=== PATIENT | male | born 1990 | race Caucasian/White ===

== ENCOUNTER → 2016-09-26 | Outpatient (CLI) | payer BC ==
[~2016-09-26] MED LIST: AMPH10TA2 PO; AMPH15CA7 PO; AMPH20CA3 PO; AMPH20TA2 PO; DOXY100C PO; ONDA4TAB10 SL
== END | disposition home or self-care (01) ==
LOC: C.PATHSPEC 16:28
PROVIDERS: ATTEND Dermatology
DX: A63.0 Anogenital (venereal) warts (principal)

== ENCOUNTER 2017-04-28 16:18 | Emergency (ER) | payer BC ==
[~2017-04-28] VITALS: Ht 180.3 cm; Wt 71.9 kg
[~2017-04-28 16:18] MED LIST changes: -AMPH10TA2 PO; -AMPH20TA2 PO; -DOXY100C PO
[2017-04-28 16:25] VITALS: Ht 180.3 cm; Wt 71.9 kg
--- NOTE | 2017-04-28 16:47 | EMERGENCY ROOM VISIT NOTE ---
History Report prepared by Tushar: Sarah Rodriguez Under the Supervision of: Dr. Bobby Wellington M.D. First contact with patient: 16:28 Chief Complaint: ABDOMINAL PAIN Stated Complaint: PAIN ABOVE PREVIOUS HERNIA SITE,ABD MVMNTS HURT Nursing Triage Summary: patient hx hernia surgery 6 years ago patient c/o right/middle abdominal pain for a couple weeks. increases in pain when doing excercises. patient states,"I just want to make sure eveyrthings ok because I had hernia surgery there." History of Present Illness The patient is a 26 year old male who presents to the Emergency Room with complaints of persistent abdominal pain starting 1.5-2 weeks ago. The patient has a history of right inguinal hernia surgery 6 years ago. He is having increased abdominal pain and is concerned about the previous surgery. He states the pain is mild. 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 He does do lifting regularly at work. He does not notice the pain as much during his normal daily activities. He reports some nausea. He denies any urinary symptoms, fever, or testicular pain. He still has his appendix. Source of History: patient Onset: 1.5-2 weeks ago Position: abdomen Symptom Intensity: mild Quality: other (pain) Timing: other (persistent) Modifying Factors (Worsening): movement Associated Symptoms: + nausea, No fevers, No urinary symptoms Note: Pt denies testicular pain. Review of Systems See HPI for pertinent positives & negatives. A total of 10 systems reviewed and were otherwise negative. Past Medical & Surgical Medical Problems: (1) Unilat Inguinal Hernia Family History No pertinent family history stated. Social History Smoking Status: Never Smoker Alcohol Use: occasionally Occupation Status: employed Current/Historical Medications No Active Prescriptions or Reported Meds Allergies Uncoded Allergies: STERIODS (Adverse Reaction, Intermediate, "EXTREME HYPERACTIVITY", 02/25/17) Physical Exam Vital Signs Date Time Temp Pulse Resp B/P (MAP) Pulse Ox O2 Delivery O2 Flow Rate FiO2 04/28/17 18:12 70 17 130/81 100 Room Air 04/28/17 17:42 37.2 04/28/17 16:25 36.5 92 18 146/86 100 Room Air Physical Exam GENERAL: Patient is in no acute distress. HEENT: No acute trauma, normocephalic atraumatic, mucous membranes moist, no nasal congestion, no scleral icterus. NECK: No stridor, no adenopathy, no meningismus, trachea is midline. LUNGS: Clear to auscultation bilaterally, no wheeze, no rhonchi, breath sounds equal. HEART: Without murmurs gallops or rubs, regular rate and rhythm. ABDOMEN: Soft, tender over the right lower abdomen at the edge of the rectus abdominis muscle, pain does not resolve with flexion of the abdominal musculature, bowel sounds positive, no hernias, no peritonitis. EXTREMITIES: No cyanosis or edema, full range of motion of all the joints without pain or difficulty, no signs for acute trauma. NEUROLOGIC: Oriented x 3, no acute motor or sensory deficits, no focal weakness. SKIN: No rash, no jaundice, no diaphoresis. Medical Decision & Procedures ER Provider Diagnostic Interpretation: Radiology results as stated below per my review and radiologist interpretation: RIGHT LOWER QUADRANT ABDOMINAL ULTRASOUND HISTORY: Right lower quadrant pain above previous hernia site. Evaluate for hernia. COMPARISON: None. FINDINGS: No right lower quadrant hernia was identified. Trace free fluid within the right lower quadrant was noted. A tubular structure with gut signature within the right lower quadrant measures 4 mm in caliber and favors the appendix. This is within normal limits. IMPRESSION: 1. No sonographic evidence of a hernia within the right lower quadrant. 2. Trace free fluid within the right lower quadrant. 3. Probable visualization of a normal appendix. Electronically signed by: José Luis Espinoza M.D. 04/28/2017 6:56 PM Dictated Date/Time: 04/28/2017 6:54 PM Laboratory Results 04/28/17 16:46 Red Blood Count 4.94, Mean Corpuscular Volume 84.0, Mean Corpuscular Hemoglobin 30.6, Mean Corpuscular Hemoglobin Concent 36.4, Mean Platelet Volume 10.9, Neutrophils (%) (Auto) 57.2, Lymphocytes (%) (Auto) 33.8, Monocytes (%) (Auto) 6.5, Eosinophils (%) (Auto) 2.3, Basophils (%) (Auto) 0.1, Neutrophils # (Auto) 4.25, Lymphocytes # (Auto) 2.51, Monocytes # (Auto) 0.48, Eosinophils # (Auto) 0.17, Basophils # (Auto) 0.01 04/28/17 16:46 Test 04/28/17 16:40 04/28/17 16:46 Urine Color YELLOW Urine Appearance CLEAR (CLEAR) Urine pH 7.0 (4.5-7.5) Urine Specific [place] 1.009 (1.000-1.030) Urine Protein NEG (NEG) Urine Glucose (UA) NEG (NEG) Urine Ketones NEG (NEG) Urine Occult Blood NEG (NEG) Urine Nitrite NEG (NEG) Urine Bilirubin NEG (NEG) Urine Urobilinogen NEG (NEG) Urine Leukocyte Esterase NEG (NEG) White Blood Count 7.43 K/uL (4.8-10.8) Red Blood Count 4.94 M/uL (4.7-6.1) Hemoglobin 15.1 g/dL (14.0-18.0) Hematocrit 41.5 % (42-52) Mean Corpuscular Volume 84.0 fL (80-100) Mean Corpuscular Hemoglobin 30.6 pg (25-34) Mean Corpuscular Hemoglobin Concent 36.4 g/dl (32-36) Platelet Count 189 K/uL (130-400) Mean Platelet Volume 10.9 fL (7.4-10.4) Neutrophils (%) (Auto) 57.2 % Lymphocytes (%) (Auto) 33.8 % Monocytes (%) (Auto) 6.5 % Eosinophils (%) (Auto) 2.3 % Basophils (%) (Auto) 0.1 % Neutrophils # (Auto) 4.25 K/uL (1.4-6.5) Lymphocytes # (Auto) 2.51 K/uL (1.2-3.4) Monocytes # (Auto) 0.48 K/uL (0.11-0.59) Eosinophils # (Auto) 0.17 K/uL (0-0.5) Basophils # (Auto) 0.01 K/uL (0-0.2) RDW Standard Deviation 37.8 fL (36.4-46.3) RDW Coefficient of Variation 12.6 % (11.5-14.5) Immature Granulocyte % (Auto) 0.1 % Immature Granulocyte # (Auto) 0.01 K/uL (0.00-0.02) Anion Gap 7.0 mmol/L (3-11) Est Creatinine Clear Calc Drug Dose 119.6 ml/min Estimated GFR () 126.8 Estimated GFR (Non- 109.4 BUN/Creatinine Ratio 15.8 (10-20) Calcium Level 9.7 mg/dl (8.5-10.1) Laboratory results reviewed by me. ED Course 163: The patient was evaluated in room A9B. A complete history and physical exam was performed. 1734: I reevaluated the patient. I updated him on the results. He would like an ultrasound as he is concered for hernia. 1909: Reevaluated the patient. Discussed results and discharge instructions: He verbalized understanding and agreement. The patient is ready for discharge. Medical Decision Differential diagnoses considered include hernia, musculoskeletal pain, muscle strain, nerve impingement, appendicitis, UTI. Patient presents with over a week of intermittent right lower quadrant and right abdominal pain. His pain worsens with activity such as exercise-he is a personal development coach. There is no leukocytosis or concerning anemia. No significant electrolyte abnormality or kidney failure. Urinalysis does not show infection or hematuria. On exam, the patient was not febrile or toxic. There was no peritonitis. An ultrasound of the abdomen was done. There was no hernia, the appendix was thought visualized and normal, some trace pelvic fluid was seen. Patient presents with right lower quadrant/right abdominal pain. The pain does seem musculoskeletal by workup and by history. The laboratory and imaging workup is benign today. I do think the patient can be discharged, Motrin, ice or heat, rest and avoidance of exercise were recommended. If things are worsening, he should return. Medication Reconcilliation Current Medication List: was personally reviewed by me Blood Pressure Screening Patient's blood pressure: Elevated blood pressure Blood pressure disposition: Elevated BP felt to be situational Impression Primary Impression: Right sided abdominal pain Scribe Attestation The scribe's documentation has been prepared under my direction and personally reviewed by me in its entirety. I confirm that the note above accurately reflects all work, treatment, procedures, and medical decision making performed by me. Departure Information Dispostion Home / Self-Care Prescriptions No Active Prescriptions or Reported Meds Referrals Maxwell Valdez M.D. (PCP) Forms HOME CARE DOCUMENTATION FORM, IMPORTANT VISIT INFORMATION Patient Instructions My [facility] Additional Instructions ice or heat to the area--which ever seems to make you more comfortable motrin 600 mg 3x per day for 5 days rest avoid exercise and activity until feeling better return for fever, vomiting or worsening symptoms
[2017-04-28 16:54] LABS: BASO % 0.1 %; BASO ABS # 0.01 K/uL (0-0.2); EOS % 2.3 %; EOS ABS # 0.17 K/uL (0-0.5); HEMATOCRIT 41.5 % (42-52); HEMOGLOBIN 15.1 g/dL (14.0-18.0); IG# 0.01 K/uL (0.00-0.02); LYMPH % 33.8 %; LYMPH ABS # 2.51 K/uL (1.2-3.4); MEAN CORPUSCULAR HEMOGLOBIN 30.6 pg (25-34); MEAN CORPUSCULAR HGB CONC 36.4 g/dl (32-36); MEAN PLATELET VOLUME 10.9 fL (7.4-10.4); MONO % 6.5 %; MONO ABS # 0.48 K/uL (0.11-0.59); NEUT % 57.2 %; NEUT ABS # 4.25 K/uL (1.4-6.5); PLATELET COUNT 189 K/uL (130-400); RED CELL DISTRIBUTION WIDTH CV 12.6 % (11.5-14.5); RED CELL DISTRIBUTION WIDTH SD 37.8 fL (36.4-46.3); WHITE BLOOD COUNT 7.43 K/uL (4.8-10.8)
[2017-04-28 17:12] LABS: CALCIUM 9.7 mg/dl (8.5-10.1); CREATININE 0.96 mg/dl (0.60-1.40); POTASSIUM 3.5 mmol/L (3.5-5.1)
[2017-04-28 17:42] VITALS: TEMP 37.2
--- NOTE | 2017-04-28 18:57 | DIAGNOSTIC IMAGING REPORT ---
RIGHT LOWER QUADRANT ABDOMINAL ULTRASOUND HISTORY: Right lower quadrant pain above previous hernia site. Evaluate for hernia. COMPARISON: None. FINDINGS: No right lower quadrant hernia was identified. Trace free fluid within the right lower quadrant was noted. A tubular structure with gut signature within the right lower quadrant measures 4 mm in caliber and favors the appendix. This is within normal limits. IMPRESSION: 1. No sonographic evidence of a hernia within the right lower quadrant. 2. Trace free fluid within the right lower quadrant. 3. Probable visualization of a normal appendix. Electronically signed by: José Luis Espinoza M.D. 04/28/2017 6:56 PM Dictated Date/Time: 04/28/2017 6:54 PM
[2017-04-28 19:35] VITALS: BP 129/71; PULSE 87; O2SAT 100
== END 2017-04-28 19:37 | disposition home or self-care (01) ==
LOC: C.EDB 16:19 → C.EDA 19:37
DX: R10.31 Right lower quadrant pain (principal)

== ENCOUNTER 2017-07-18 13:21 | Emergency (ER) | payer BC ==
[~2017-07-18] VITALS: Ht 180.3 cm; Wt 73.4 kg
[2017-07-18 13:27] VITALS: TEMP 36.6; Ht 180.3 cm; Wt 73.4 kg
[2017-07-18] MEDS ORDERED: SODIUM CHLORIDE 0.9% 1000ML 1,000 ML IV STA (13:53)
--- NOTE | 2017-07-18 13:58 | EMERGENCY ROOM VISIT NOTE ---
History Report prepared by Tushar: Home Koch Under the Supervision of: Dr. Shivam Sterling M.D. First contact with patient: 13:48 Chief Complaint: LEG PAIN,LEG INJURY Stated Complaint: TINGLING/NUMBNESS IN LEFT LEG, DIZZY, HEART PALP History of Present Illness The patient is a 26 year old male who presents to the Emergency Room with complaints of constant left leg tingling that began 4 days ago. He currently rates his discomfort a 2/10 in severity. He complains of dizziness, heart palpitations, weakness, and pulsating calf pain though these are on and off for quite some time. 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 He has a history of Factor 5 and denies any recent blood clots. He denies back pain, vision loss, abdominal pain, fevers, loss of bowel control, and nausea. He denies a history of electrolyte abnormality, diabetes, and steroid use. No medications taken for this. Father with history of MS. Source of History: patient Onset: 4 days ago Position: leg (left) Symptom Intensity: pain rated as 2/10 Quality: numbness (and tingling) Timing: constant Associated Symptoms: + weakness, No fevers, No nausea, No abdominal pain, No back pain Note: Patient reports dizziness, heart palpitations, and pulsating calf pain. Patient denies vision loss and loss of bowel control. Review of Systems See HPI for pertinent positives & negatives. A total of 10 systems reviewed and were otherwise negative. Past Medical & Surgical Medical Problems: (1) Unilat Inguinal Hernia Family History Patient reports no known family medical history. Social History Smoking Status: Never Smoker Alcohol Use: occasionally Drug Use: none Occupation Status: employed Current/Historical Medications No Active Prescriptions or Reported Meds Allergies Uncoded Allergies: STEROIDS (Adverse Reaction, Severe, HYPERACTIVITY, 07/18/17) Physical Exam Vital Signs Date Time Temp Pulse Resp B/P (MAP) Pulse Ox O2 Delivery O2 Flow Rate FiO2 07/18/17 15:34 80 18 121/68 100 Room Air 07/18/17 13:45 77 07/18/17 13:27 36.6 93 18 179/74 99 Room Air Physical Exam GENERAL: Patient is anxious appearing and in no acute distress. EYES: No scleral icterus, unremarkable pupils. ENT: Mucous membranes moist, no nasal congestion. NECK: No masses appreciated, no meningismus, trachea is midline. RESPIRATORY: No dyspnea. Clear to auscultation and equal bilaterally. No wheeze , no rhonchi. CARDIOVASCULAR: Regular rate and rhythm. No murmurs, rubs, gallops appreciated. GASTROINTESTINAL: Abdomen soft, nontender, no peritonitis. Bowel sounds positive. No masses appreciated. BACK: No midline tenderness, no CVA tenderness EXTREMITIES: Normal motion all extremities, no cyanosis, no edema. NEUROLOGIC: Alert and oriented, no acute motor or sensory deficits, no focal weakness, cranial nerves grossly intact. SKIN: Extensive acne over back and neck. No rash, no jaundice, no diaphoresis. Medical Decision & Procedures ER Provider Diagnostic Interpretation: Radiology results and stated below per my review and radiologist interpretation: ULTRASOUND L VENOUS DOPP LOWER EXT UNILAT CLINICAL HISTORY: Left leg pain COMPARISON STUDY: No previous studies for comparison. FINDINGS: Real-time and color flow Doppler imaging were performed. Flow was seen within the femoral, popliteal and calf veins with no intraluminal thrombus demonstrated. The saphenous vein is patent. IMPRESSION: No evidence of left lower extremity DVT. Electronically signed by: Jerzy Beach M.D. 07/18/2017 3:07 PM Dictated Date/Time: 07/18/2017 3:07 PM Laboratory Results 07/18/17 14:20 Red Blood Count 4.84, Mean Corpuscular Volume 83.9, Mean Corpuscular Hemoglobin 30.4, Mean Corpuscular Hemoglobin Concent 36.2, Mean Platelet Volume 10.8, Neutrophils (%) (Auto) 69.6, Lymphocytes (%) (Auto) 22.8, Monocytes (%) (Auto) 5.5, Eosinophils (%) (Auto) 2.0, Basophils (%) (Auto) 0.1, Neutrophils # (Auto) 4.76, Lymphocytes # (Auto) 1.56, Monocytes # (Auto) 0.38, Eosinophils # (Auto) 0.14, Basophils # (Auto) 0.01 07/18/17 14:20 Test 07/18/17 13:45 07/18/17 14:20 Urine Color YELLOW Urine Appearance CLEAR (CLEAR) Urine pH 6.5 (4.5-7.5) Urine Specific [place] 1.010 (1.000-1.030) Urine Protein NEG (NEG) Urine Glucose (UA) NEG (NEG) Urine Ketones NEG (NEG) Urine Occult Blood NEG (NEG) Urine Nitrite NEG (NEG) Urine Bilirubin NEG (NEG) Urine Urobilinogen NEG (NEG) Urine Leukocyte Esterase NEG (NEG) Urine WBC (Auto) 0 /hpf (0-5) Urine RBC (Auto) 0-4 /hpf (0-4) Urine Hyaline Casts (Auto) 0 /lpf (0-5) Urine Epithelial Cells (Auto) 0-5 /lpf (0-5) Urine Bacteria (Auto) NEG (NEG) White Blood Count 6.85 K/uL (4.8-10.8) Red Blood Count 4.84 M/uL (4.7-6.1) Hemoglobin 14.7 g/dL (14.0-18.0) Hematocrit 40.6 % (42-52) Mean Corpuscular Volume 83.9 fL (80-100) Mean Corpuscular Hemoglobin 30.4 pg (25-34) Mean Corpuscular Hemoglobin Concent 36.2 g/dl (32-36) Platelet Count 169 K/uL (130-400) Mean Platelet Volume 10.8 fL (7.4-10.4) Neutrophils (%) (Auto) 69.6 % Lymphocytes (%) (Auto) 22.8 % Monocytes (%) (Auto) 5.5 % Eosinophils (%) (Auto) 2.0 % Basophils (%) (Auto) 0.1 % Neutrophils # (Auto) 4.76 K/uL (1.4-6.5) Lymphocytes # (Auto) 1.56 K/uL (1.2-3.4) Monocytes # (Auto) 0.38 K/uL (0.11-0.59) Eosinophils # (Auto) 0.14 K/uL (0-0.5) Basophils # (Auto) 0.01 K/uL (0-0.2) RDW Standard Deviation 37.4 fL (36.4-46.3) RDW Coefficient of Variation 12.3 % (11.5-14.5) Immature Granulocyte % (Auto) 0.0 % Immature Granulocyte # (Auto) 0.00 K/uL (0.00-0.02) Anion Gap 4.0 mmol/L (3-11) Est Creatinine Clear Calc Drug Dose 117.2 ml/min Estimated GFR () 120.7 Estimated GFR (Non- 104.1 BUN/Creatinine Ratio 15.9 (10-20) Calcium Level 9.2 mg/dl (8.5-10.1) Total Creatine Kinase 160 U/L (39-308) Thyroid Stimulating Hormone (TSH) 1.010 uIu/ml (0.300-4.500) Laboratory results as reviewed by me. Medications Administered Medications (Trade) Dose Ordered Sig/[place] Route Start Time Stop Time Status Last Admin Dose Admin Sodium Chloride 1,000 ml @ 999 mls/hr Q1H1M STAT IV 07/18/17 13:53 07/18/17 14:53 DC 07/18/17 13:53 999 MLS/HR ED Course 1348: The patient was evaluated in room C1B. A complete history and physical exam was performed. 1525: I checked on the patient and he would like to go home 1530: Reevaluated the patient. Discussed results and discharge instructions: He verbalized understanding and agreement. The patient is ready for discharge. Medical Decision 26 yr old male arrives for evaluation left leg paraesthesias and some left thigh cramping. 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 US fortunately negative. Labs unremarkable and patient looks well. 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 No neuro deficits thus I feel MRI not indicated. No reason to suspect this is epidural abscess currently and without further symptoms, again I wouldn't think imaging indicated. Family history of MS but he has no hallmarks of this. No evidence rhabdo. I do not feel this is arterial occlusion. Reviewed follow up with PCP and symptoms requiring RTED. Medication Reconcilliation Current Medication List: was personally reviewed by me Blood Pressure Screening Patient's blood pressure: Elevated blood pressure Blood pressure disposition: Elevated BP felt to be situational Impression Primary Impression: Left leg paresthesias Scribe Attestation The scribe's documentation has been prepared under my direction and personally reviewed by me in its entirety. I confirm that the note above accurately reflects all work, treatment, procedures, and medical decision making performed by me. Departure Information Dispostion Home / Self-Care Prescriptions No Active Prescriptions or Reported Meds Referrals Maxwell Valdez M.D. (PCP) Forms HOME CARE DOCUMENTATION FORM, IMPORTANT VISIT INFORMATION Patient Instructions My [facility] Additional Instructions Keep well hydrated and avoid any heavy lifting/twisting with your low back. Return if leg weakness, loss of bowel/bladder, or other abnormal findings. We are always here to help. Follow up with your primary provider. Use Motrin (ibuprofen) as needed for discomfort.
[2017-07-18 14:31] LABS: BASO % 0.1 %; BASO ABS # 0.01 K/uL (0-0.2); EOS ABS # 0.14 K/uL (0-0.5); HEMATOCRIT 40.6 % (42-52); HEMOGLOBIN 14.7 g/dL (14.0-18.0); LYMPH % 22.8 %; LYMPH ABS # 1.56 K/uL (1.2-3.4); MEAN CELL VOLUME 83.9 fL (80-100); MEAN CORPUSCULAR HEMOGLOBIN 30.4 pg (25-34); MEAN CORPUSCULAR HGB CONC 36.2 g/dl (32-36); MEAN PLATELET VOLUME 10.8 fL (7.4-10.4); MONO % 5.5 %; MONO ABS # 0.38 K/uL (0.11-0.59); NEUT % 69.6 %; NEUT ABS # 4.76 K/uL (1.4-6.5); PLATELET COUNT 169 K/uL (130-400); RED CELL DISTRIBUTION WIDTH CV 12.3 % (11.5-14.5); RED CELL DISTRIBUTION WIDTH SD 37.4 fL (36.4-46.3); WHITE BLOOD COUNT 6.85 K/uL (4.8-10.8)
[2017-07-18 14:47] LABS: CALCIUM 9.2 mg/dl (8.5-10.1); POTASSIUM 3.6 mmol/L (3.5-5.1)
--- NOTE | 2017-07-18 15:08 | DIAGNOSTIC IMAGING REPORT ---
ULTRASOUND L VENOUS DOPP LOWER EXT UNILAT CLINICAL HISTORY: Left leg pain COMPARISON STUDY: No previous studies for comparison. FINDINGS: Real-time and color flow Doppler imaging were performed. Flow was seen within the femoral, popliteal and calf veins with no intraluminal thrombus demonstrated. The saphenous vein is patent. IMPRESSION: No evidence of left lower extremity DVT. Electronically signed by: Jerzy Beach M.D. 07/18/2017 3:07 PM Dictated Date/Time: 07/18/2017 3:07 PM
[2017-07-18 15:34] VITALS: BP 121/68; PULSE 80; O2SAT 100
== END 2017-07-18 15:36 | disposition home or self-care (01) ==
LOC: C.EDB 13:23 → C.EDC 15:36
DX: R20.2 Paresthesia of skin (principal); R25.2 Cramp and spasm; D68.51 Activated protein C resistance; Z82.0 Family history of epilepsy and other diseases of the nervous system; Z88.8 Allergy status to other drugs, medicaments and biological substances

== ENCOUNTER → 2017-08-21 | Outpatient (CLI) | payer BC | END | disposition home or self-care (01) | LOC: C.LABSPEC 16:41 | PROVIDERS: ATTEND Dermatology | DX: L70.0 Acne vulgaris (principal) ==